=== PATIENT | female | born 1950 | race Caucasian/White ===

== ENCOUNTER → 2016-10-04 | Outpatient (CLI) | payer MEDICARE, BC ==
--- NOTE | 2016-10-05 14:33 | RAD ---
EXAM DESCRIPTION: Bilateral Ribs CLINICAL HISTORY: LEFT SIDE RIB PAIN COMPARISON: None available FINDINGS: The heart is at the upper limits of normal size. There is no airspace consolidation or pleural effusion. There is no apparent rib fracture or pneumothorax. There are degenerative changes in the thoracic spine at several levels including mild convex rightward scoliosis. There is compression deformity of the L1 body, questionable acuity. Postoperative changes are noted in the right shoulder. IMPRESSION: Degenerative changes in the thoracic spine including mild dextroscoliosis, but no rib fracture. L1 compression fracture, questionable acuity. Electronically signed by: Neymar Escoto MD 10/05/2016 2:31 PM CDT Workstation: -[id number]
== END ==
LOC: RAD 15:15
PROVIDERS: ATTEND Nurse Practitioner Family
DX: R07.1 Chest pain on breathing (principal)

== ENCOUNTER → 2016-10-09 | Outpatient (CLI) | payer MEDICARE, BC ==
--- NOTE | 2016-10-10 08:00 | CT ---
EXAM DESCRIPTION: Chest w/o Contrast CLINICAL HISTORY: CHEST PAIN ON BREATHING COMPARISON: Rib series October 04, 2016 TECHNIQUE: Noncontrast transaxial CT images of the chest are obtained. This exam was performed according to our departmental dose-optimization program, which includes automated exposure control, adjustment of the mA and/or kV according to patient size and/or use of iterative reconstruction technique . FINDINGS: Incidental low-attenuation lesion in the mid to lower pole left lobe thyroid measures 12 mm transverse. No further imaging follow-up is recommended based on size of lesion and patient age. Moderate to severe coronary artery calcifications are seen. Mild ectasia of the ascending thoracic aorta measuring 3.9 cm. Given the limitations of a noncontrast exam no pathologically enlarged lymphadenopathy seen. Dense breast tissue is incidentally noted. No pleural or pericardial effusion. Visualized portion of the upper abdomen shows cholecystectomy changes. There is a 12 mm nodule of the left adrenal gland with Hounsfield units of 4.3 suggesting adrenal adenoma. Small hiatal hernia is suspected. Fluid attenuation 3.4 cm exophytic cyst of the upper pole left kidney is noted. Lungs are mildly hyperinflated. Mild emphysematous changes to the lungs are seen. No acute infiltrate or consolidation is seen. There is a pleural-based noncalcified 6 mm pulmonary nodule the right middle lobe on image 36. A 3 mm noncalcified pulmonary nodule in the right upper lobe on image 17 is seen medially. There is a 2 to 3 mm noncalcified pulmonary nodule in the anterior left lower lobe on image 34. Osseous structures show no aggressive bony lesions. Scoliosis of the thoracic spine is seen with curvature of the mid to upper thoracic spine towards the right and curvature of the lower thoracic spine towards the left. Compression fracture deformity at L1 seen. The osseous structures are diffusely osteopenic limiting evaluation for nondisplaced rib fractures. There is mild cortical irregularity and angulation of the anterior left 10th rib. There is also evidence of remote healed fractures of the posterior right 11th and 12th ribs. Remote appearing fractures of the right seventh and eighth ribs are seen. IMPRESSION: No acute findings on CT of the chest. Remote appearing rib fractures are seen with question of more acute nondisplaced fracture of the anterior lateral left 10th rib. Correlate with pain or tenderness in this region. Moderate to severe coronary artery calcifications. Mild emphysematous changes to the lungs. Several nonspecific noncalcified pulmonary nodules are seen measuring less than 6 mm. Recommend follow-up CT imaging in one year to document long-term stability. Incidental low-attenuation lesion in the mid to lower pole left lobe thyroid measures 12 mm transverse. No further imaging follow-up is recommended based on size of lesion and patient age. 1.Further evaluation by thyroid US recommended for: -Solitary ITN with high risk imaging features (locally invasive nodule or suspicious lymph nodes) -Solitary ITN of any size in pediatric pts. <= 18 years of age -Solitary ITN >= 1 cm in axial plane in pts. between 18 and 35 years of age -Solitary ITN >= 1.5 cm in axial plane in pts >= 35 years of age -Heterogeneous enlarged thyroid gland -ITN avid on FDG-PET or other nuclear medicine (MIBI and octreotide) scans. FNA biopsy is also recommended for PET avid nodules. 2.No f/u imaging is recommended for ITNs not meeting the above criteria. 3.For multiple thyroid nodules, the above recommendations for solitary ITN are to be applied to the largest nodule. 4.No US or f/u recommended for ITNs without high risk features in pts. with limited life expectancy or significant co-morbidities, unless clinically warranted. 5.These recommendations do not apply to pts. w/ increased risk for thyroid cancer or pts. with symptomatic thyroid disease. Recommendations for f/u of Incidental Thyroid Nodules (ITN) found on CT, MR, NM and Extrathyroidal US are based upon the ACR white paper and [place] 3-tiered system for managing ITNs: J Am Ana Paula Radiol. 2015 Mar;12(2): 143-50 Electronically signed by: Jaswinder Rubin MD 10/10/2016 7:59 AM CDT
== END | disposition home or self-care (01) ==
LOC: CT 14:34
PROVIDERS: ATTEND Nurse Practitioner Family
DX: R07.1 Chest pain on breathing (principal)

== ENCOUNTER → 2017-05-24 | Outpatient (CLI) | payer MEDICARE, BC | LOC: GMAJS 11:10 | PROVIDERS: ATTEND Physician Assistant | DX: N30.00 Acute cystitis without hematuria (principal); R31.21 Asymptomatic microscopic hematuria ==

== ENCOUNTER → 2017-06-20 | Outpatient (CLI) | payer MEDICARE, BC ==
--- NOTE | 2017-06-21 08:53 | CT ---
EXAM DESCRIPTION: Chest w/Contrast : Computed Tomography. CLINICAL HISTORY: PULMONARY NODULE COMPARISON: Chest CT without contrast 10/09/2016. CT abdomen and pelvis without contrast 05/24/2017 TECHNIQUE: Spiral-axial scans at 5.0 mm intervals through the lungs and thorax without IV contrast. 2.5 mm lung algorithm axial reconstructions. 2.0 Mm reconstructions. No adverse reactions. Total Exam DLP: 358.30 mGy-cm. This exam was performed according to our departmental dose-optimization program which includes automated exposure control, adjustment of the mA and/or kV according to patient size and/or use of iterative reconstruction technique; to reduce radiation dose to as low as reasonably achievable (ALARA). FINDINGS: Minimally prominent airspaces in the lung parenchyma upper lobes more than lower lobes. Centrilobular in distribution. Nodule abutting the pleura of the lateral segment of the right middle lobe with mean diameter 6.3 mm soft tissue density stable since the prior study. Minimal bilateral mosaic parenchymal density. Bibasilar scarring more on the right. No new consolidation bilaterally. No pleural effusion or pneumothorax. Uniform enhancement bilateral thyroid gland. No soft tissue masses in the base of the neck. No soft tissue masses in the mediastinum or hilum bilaterally. No axillary adenopathy. Spondylosis at multiple levels of the thoracic spine with T5-T7 dextroscoliosis and lumbosacral levoscoliosis. Almost full-thickness central compression fracture at T12 is stable. Minimally enhancing nodule in the lateral segment of the left hepatic lobe. Approximately 1 cm diameter. There may be a second nodular enhancing more inferior and anterior in the same segment. Also 1 cm nodule enhancing in the subcapsular lateral right lobe. Normal enhancement and size of the adrenal glands and spleen. No free fluid in the included peritoneal space. Prior cholecystectomy. Common bile duct dilated. IMPRESSION: 1. Stable 6.3 millimeters nodule abutting the pleura lateral segment right middle lobe over 6 month interval. Consider 12 month follow-up according to 2017 Fleischner Society guidelines for follow-up of solitary pulmonary nodules. Please see below.* Stable background mild centrilobular emphysematous changes and bibasilar scarring or atelectasis. 2. At least 3 enhancing nodules in the liver. These are not calcified on the prior abdominal CT. Statistically these are most likely hemangiomas. Recommend follow-up MRI of the liver without and with gadolinium IV contrast. 3. Consider digital bilateral screening mammography not performed in the past 12 months. * 2017 Fleischner Society Recommendations for Single Solid Lung Nodule Follow-Up based on size (average of long- and short-axis diameters) <6 mm Low-Risk Patient: No routine follow-up <6 mm High-Risk Patient: Optional CT at 12 months 6-8 mm Low-Risk Patient: CT at 6-[address] at 18-24 months 6-8 mm High-Risk Patient: CT at 6-[address] at 18-24 months >8 mm Low-Risk Patient: Consider CT, PET/CT or tissue sampling at 3 months >8 mm High-Risk Patient: Same as for low-risk patient Electronically signed by: Reji Gardner MD 06/21/2017 8:51 AM CDT
== END ==
LOC: CT 08:48
PROVIDERS: ATTEND Family Medicine
DX: R91.8 Other nonspecific abnormal finding of lung field (principal)

== ENCOUNTER → 2018-01-23 | Outpatient (CLI) | payer MEDICARE, BC ==
--- NOTE | 2018-01-24 09:29 | US ---
US THYROID CLINICAL STATEMENT: THYROID NODULE. No palpable mass. No history of thyroid treatment or surgery. COMPARISON: None FINDINGS: Size right thyroid lobe: 4.0 x 1.9 x 1.4 cm Size left thyroid lobe: 3.1 x 1.5 x 1.5 cm Size isthmus: 0.2 cm Estimated total number of nodules greater than or equal to 1 cm: 1. Heterogeneous both lobes and isthmus. Nodule 1: Size: 0.8 x 0.6 x 0.5 cm Location: Right Mid Composition: solid or almost completely solid: 2 points Echogenicity: hypoechoic: 2 points Shape: wider than tall: 0 points Margins: ill-defined: 0 points Echogenic foci: none: 0 points ACR Total Points: 4; ACR TI-RADS risk category: TR4 - moderately suspicious nodule. Nodule 2: Size: 0.9 x 0.7 x 0.5 cm Location: Right Lower Composition: mixed cystic and solid: 1 point Echogenicity: hypoechoic: 2 points Shape: wider than tall: 0 points Margins: smooth: 0 points Echogenic foci: none: 0 points ACR Total Points: 3; ACR TI-RADS risk category: TR3 - mildly suspicious nodule. Nodule 3: Size: 0.3 x 0.3 x 0.3 cm Location: Left Upper Composition: cystic or completely cystic: 0 points Echogenicity: anechoic: 0 points Shape: wider than tall: 0 points Margins: smooth: 0 points Echogenic foci: none: 0 points ACR Total Points: 0; ACR TI-RADS risk category: TR1 - benign nodule Nodule 4: Size: 1.9 x 1.5 x 1.2 cm Location: Left Lower Composition: solid or almost completely solid: 2 points Echogenicity: hypoechoic: 2 points Shape: wider than tall: 0 points Margins: smooth: 0 points. Vascularity of the margins. Echogenic foci: none: 0 points ACR Total Points: 4; ACR TI-RADS risk category: TR4 - moderately suspicious nodule. Soft tissues around the thyroid gland with no distinct solid mass or cyst. No large calcifications or parenchymal edema. No overlying skin changes. Normal vascularity. IMPRESSION: 1. Nodule 1: ACR TI-RADS 2017 Category TR4. Recommend: No further follow-up. This is based upon [facility] [employer] recommendations following ACR TI-RADS 2017 recommendations and guidelines. Please see below.* 2. Nodule 2: ACR TI-RADS 2017 Category TR 4. Recommend: No further follow-up. 3. Nodule 3: ACR TI-RADS 2017 Category TR1. Recommend: No further follow-up. 4. Nodule 4: ACR TI-RADS 2017 Category TR4. Recommend: Ultrasound-guided fine needle aspiration Soft tissue around the thyroid gland is unremarkable. *ACR TI-RADS 2017 Recommendations: TR1: No FNA or follow up TR2: No FNA or follow up TR3: FNA if >/= 2.5 cm, follow up if 1.5 - 2.4 cm in 1, 3, and 5 years TR4: FNA if >/= 1.5 cm, follow up if 1.0 - 1.4 cm in 1, 2, 3, and 5 years TR5: FNA if >/= 1.0 cm, follow up if 0.5 - 0.9 cm every year for 5 years ACR TI-RADS recommends that no more than two nodules with the highest ACR TI-RADS total point should be biopsied and no more than four nodules should be followed. Electronically signed by: Reji Gardner MD 01/24/2018 9:28 AM [employer]
== END ==
LOC: US 14:30
PROVIDERS: ATTEND Family Medicine
DX: E04.1 Nontoxic single thyroid nodule (principal)

== ENCOUNTER → 2018-02-04 | Outpatient (CLI) | payer MEDICARE, BC ==
--- NOTE | 2018-02-04 12:55 | US ---
Thyroid Ultrasound Biopsy CLINICAL INFORMATION: . No complaints. Thyroid nodule found on screening test. Prior thyroid ultrasound 01/23/2014. TECHNIQUE: Procedure was explained to the patient with risks and benefits. The patient gave verbal and written consent. Sterile preparation draping. 1% xylocaine dermal anesthetic 9-1 mixture with sodium bicarbonate. Sterile ultrasound guidance. A total of 6 passes into the left thyroid nodule; 3 needle samplings with a separate 1.5 inch, 25-gauge needle per sample, and 3 aspirations, with a separate 1.5 inch, 25-gauge needle/10-cc syringe set, per aspiration. Each sample was placed on a separate slide and fixed in 95% alcohol container. Saccomanno fluid drawn into aspirate needle and rinse injected into Saccomanno container. Specimens to be sent for pathologic examination at remote facility. . Patient tolerated procedure well. Biopsy #: 1 Nodule reference number based on prior diagnostic ultrasound:4 Maximum size: 1.9 cm Location: left; lower ACR TI-RADS risk category: TR4 (4-6 points) Reason for biopsy: meets ACR TI-RADS criteria Complications: None IMPRESSION: Successful ultrasound guided fine needle aspiration of thyroid nodule. Left lower thyroid lobe. Pathology results pending at remote facility. Electronically signed by: Reji Gardner MD 02/04/2018 12:54 PM [employer]
== END ==
LOC: US 15:05
PROVIDERS: ATTEND Family Medicine
DX: E04.1 Nontoxic single thyroid nodule (principal)

== ENCOUNTER → 2018-05-27 | Outpatient (CLI) | payer MEDICARE, BC ==
--- NOTE | 2018-05-28 08:59 | CT ---
EXAM DESCRIPTION: Chest w/o Contrast CLINICAL HISTORY: SOLITARY LUNG NODULE COMPARISON: June 20, 2017 TECHNIQUE: Chest CT was performed without IV contrast. This exam was performed according to our departmental dose-optimization program, which includes automated exposure control, adjustment of the mA and/or kV according to patient size and/or use of iterative reconstruction technique. FINDINGS: 1.7 cm low-density nodule left thyroid lobe not seen on the previous CT. Coronary artery calcifications are noted. No thoracic aortic aneurysm. Moderate size hiatal hernia. Limited sensitivity for detection of adenopathy due to lack of IV contrast, but no mediastinal or hilar adenopathy is seen. The central airways are clear. No airspace consolidation or lung mass. 7 mm noncalcified pleural-based nodule in the right middle lobe (series 2 image 41), stable. No additional suspicious lung nodule is identified. The gallbladder is surgically absent. Tiny nonobstructing left renal calculus with a 3.7 cm uncomplicated cyst superior pole left kidney. Tiny calcified splenic granuloma. Visualized portions of the upper abdomen are otherwise unremarkable for noncontrast technique. No acute fracture or pneumothorax. Old L1 compression fracture, stable. Poorly defined area of lysis and sclerosis in the sternum at the sternomanubrial joint, stable and probably related to remote trauma. IMPRESSION: 7 mm noncalcified right middle lobe nodule, stable from May, and also unchanged from an older CT performed in September,. Based on 2017 Fleishner Society recommendations, no further follow-up is recommended for this finding. 1.7 cm low-density nodule left thyroid lobe which likely correlates with the nodule seen on recent ultrasound and biopsy performed January,. Moderate-sized hiatal hernia, coronary artery disease and other nonacute findings as detailed above Old L1 and sternal body fractures. Electronically signed by: Neymar Escoto MD 05/28/2018 8:56 AM CDT
== END ==
LOC: CT 12:16
PROVIDERS: ATTEND Internal Medicine
DX: J98.4 Other disorders of lung (principal); R91.1 Solitary pulmonary nodule; E04.1 Nontoxic single thyroid nodule

== ENCOUNTER → 2019-03-26 | Outpatient (CLI) | payer MEDICARE, BC ==
--- NOTE | 2019-03-27 16:04 | MRI ---
EXAM DESCRIPTION: Cervical Spine: MRI. CLINICAL HISTORY: 69 years Female RADICULOPATHY CERVICAL REGION COMPARISON: MRI scan cervical spine May 2014. TECHNIQUE: Multiplanar, high-field MRI, multiple sequences, non-contrast Cervical spine.. Technically difficult study due to patient motion especially on the axial images. FINDINGS: C3-C4: Disc desiccation and moderate disc space loss. Schmorl's node inferior C3 endplate anterior. Bilateral endplate spondylosis more severe on the left. 2 mm retrolisthesis. Anterior disc bulge and spurs. Posterior disc bulge broad-based and abutting the cord with endplate spurs and borderline mild canal stenosis. Facet joints are unremarkable. Bilateral uncinate spurs. Bilateral neural foraminal stenosis. Stable since the prior study. C4-C5: Moderate disc space loss anterior bulging and endplate ridging. Disc desiccated. Diffuse spondylosis. Bilateral disc spur complex encroaching on the lateral soft tissues. Posterior disc spur complex broad-based with central prominence impressing on the ventral midline cord with mild central canal stenosis. Minimal bilateral arthrosis of the facet joints. Bilateral uncinate spurs. Right neural foraminal stenosis and moderate to severe left neural foraminal narrowing. No change from the prior study. C5-C6: Disc degeneration and moderate to severe disc space loss and bilateral disc spur complex bulging laterally into the soft tissues. Bilateral uncinate spurs. Hypertrophic right facet arthrosis. Bilateral mild neural foraminal stenosis, more severe on the left. This has progressed since the prior study. Posterior broad-based disc bulge and endplate spurs with possible midline protrusion impinging the midline ventral cord with mild to moderate central canal stenosis. This has progressed since the prior study. C6-C7: Disc desiccation moderate disc space loss anterior bulging with endplate ridging. Posterior disc osteophyte bulge in the midline and left of midline impressing on the left ventral disc and the left C7 nerve. Bilateral uncinate spurs and bilateral neural foraminal stenosis more severe on the left. This has progressed on the right since the prior study. C7-T1: Disc desiccation and minimal disc space loss. Minimal anterior bulging. Posterior broad-based bulge with mild to moderate narrowing of the canal. Bilateral disc bulging into the foramina with right uncinate spur and right neural foraminal stenosis. Mild to moderate left neural foraminal narrowing. Facet joints are negative. Minimal thickening of the posterior ligaments. T1-T2: Disc desiccation minimal disc space loss anterior and posterior bulging. Mild canal narrowing. Mild bilateral neural foraminal narrowing. Facet joints are negative. Normal signal in the C2-C3 disc with no bulging. Disc spaces preserved. Canal and neural foramina are patent. Facet joints unremarkable. Levoscoliosis. Spinal alignment indicating levoscoliosis. Retrolisthesis C3-C4.. No cord compression or cord edema. Atlantoaxial joint minimal arthrosis and effusion.. Base of the cerebellar tonsils is above the foramen magnum. Paravertebral soft tissues unremarkable.. Vertebral bodies are not compressed at any level. Otherwise normal marrow signal in the remaining vertebral bodies and the posterior elements. IMPRESSION: 1. Posterior broad-based C3-C4 disc osteophyte bulge into the canal with borderline mild central canal stenosis. Bilateral neural foraminal stenosis with compromise bilateral C4 nerves. Stable since the prior study. 2. Posterior C4-C5 disc spur complex impressing on the ventral midline cord with mild central canal stenosis. Right neural foraminal stenosis and moderate to severe left neural foraminal narrowing. No change from the prior study. 3. C5-C6 disc bulging posteriorly with endplate spurs and possible midline protrusion, impinging the cord with mild to moderate central canal stenosis. No compression, but this has progressed since the prior study. Bilateral neural foraminal stenosis more severe on the left is also progressed. 4. Posterior midline and left paracentral C6-C7 disc spur complex abutting the cord with possible compromise of the left C7 nerve. Bilateral neural foraminal stenosis more severe on the left. This has progressed on the right since the prior study. 5. Disc bulge and right uncinate spur resulting in right neural foraminal stenosis at C7-T1. Possible compromise of the right C8 nerve. Stable from the prior study.. Electronically signed by: Reji Gardner MD 03/27/2019 4:02 PM [facility]
== END ==
LOC: MRI 14:00
PROVIDERS: ATTEND Family Medicine
DX: M54.12 Radiculopathy, cervical region (principal); M48.02 Spinal stenosis, cervical region; M48.03 Spinal stenosis, cervicothoracic region; M50.922 Unspecified cervical disc disorder at C5-C6 level; M50.93 Cervical disc disorder, unspecified, cervicothoracic region; M25.78 Osteophyte, vertebrae

== ENCOUNTER 2019-03-29 07:43 | Emergency (ER) | payer MEDICARE, BC ==
[2019-03-29 07:51] VITALS: TEMP 97.5
--- NOTE | 2019-03-29 07:56 | ED.PDOC ---
History of Present Illness - General Time Seen by Provider: 03/29/19 07:54 Source: patient - History of Present Illness Initial Comments: 69 yo female with PMH of HTN who presents with cc of chest pain. Sudden onset at 5 am while asleep - woke her up, located to center of chest, pressure-like, constant, 8/10 severity, radiated to left jaw and BL UE numbness as well, not worse with exertion or improved with rest, tried some antacids without relief at home, assoc'd with some dizziness. No hx of similar sx's. Denies any hx of MD/stents but has family hx of CAD/stroke in several immediate family members. Denies any dyspnea, cough, fevers/chills, abd pain, leg swelling, urinary sx's. Did report some nausea earlier with sx onset but no vomiting. Reports chest pain resolved shortly after ED arrival and reports 0/10 pain currently. Allergies/Adverse Reactions: Allergies Acetaminophen [From Darvocet-N] Allergy (Verified 06/20/13 18:09) Cephalexin Allergy (Verified 03/29/19 07:55) Morphine Allergy (Verified 06/20/13 18:09) Penicillins Allergy (Verified 06/20/13 18:09) Propoxyphene [From Darvocet-N] Allergy (Verified 06/20/13 18:09) Sulfa Antibiotics Allergy (Verified 06/20/13 18:09) Home Medications: Ambulatory Orders Atorvastatin Calcium 20 mg PO AM 06/11/13 Losartan Potassium 100 mg PO DAILY 06/11/13 Aspirin [Aspirin Adult Low Dose] 81 mg PO DAILY 11/29/15 Diltiazem HCl [Diltiazem HCl ER] 240 mg PO DAILY 03/29/19 Hydrochlorothiazide 25 mg PO DAILY 03/29/19 Meloxicam 15 mg PO DAILY 03/29/19 Review of Systems - Review of Systems Review of Systems: 03/29/19 08:10 as per HPI All other Systems: Reviewed and Negative Past Medical History (General) - Patient Medical History Hx Seizures: No Hx Stroke: No Hx Dementia: No Hx Asthma: No Hx of COPD: No Hx Cardiac Disorders: No Hx Congestive Heart Failure: No Hx Pacemaker: No Hx Hypertension: Yes Hx Thyroid Disease: No Hx Diabetes: No Hx Gastroesophageal Reflux: No Hx Renal Disease: No Hx Cancer: No Hx of HIV: No Hx Hepatitis C: No Hx MRSA: No Surgical History: appendectomy, cholecystectomy, Hysterectomy - Vaccination History Hx Tetanus, Diphtheria Vaccination: Yes Hx Influenza Vaccination: Yes Hx Pneumococcal Vaccination: Yes - Social History Hx Tobacco Use: No Hx Chewing Tobacco Use: No Hx Alcohol Use: No Hx Substance Use: No Hx Substance Use Treatment: No Hx Depression: No Feels Threatened In Home Enviroment: No Feels Threatened In a Relationship: No Hx Physical Abuse: No Hx Emotional Abuse: No Hx Suspected Abuse: No - Female History Patient is a Female of Child Bearing Age (10 -59 yrs old): No Patient : No - Triage Comment ED Triage Comment: Chest pressure Family Medical History - Family History Mother Living Status: Age at (years of age): 55 Cause of : CVA Hx Family Hypertension: Yes Hx Family Stroke: Yes Physical Exam - Physical Exam General Appearance: Alert, Comfortable, No apparent distress Eye Exam: bilateral normal Ears, Nose, Throat: hearing grossly normal, normal ENT inspection Neck: non-tender, full range of motion, supple, normal inspection Respiratory: chest non-tender, lungs clear, normal breath sounds, no respiratory distress Cardiovascular/Chest: normal peripheral pulses, no edema, no murmur, tachycardia Peripheral Pulses: radial,right: 2+, radial,left: 2+ Gastrointestinal/Abdominal: non tender, soft Back Exam: normal inspection, no CVA tenderness, no vertebral tenderness Extremity: normal range of motion, non-tender, normal inspection, no pedal edema, no calf tenderness Neurologic: [employer] II-XII nml as tested, no motor/sensory deficits, alert, normal mood/affect, oriented x 3 Skin Exam: normal color, warm/dry Lymphatic: no adenopathy Progress - Progress Progress: 03/29/19 08:11 Chest pain -consider a-fib, ACS, CHF, PE, PNA, MSK, anxiety -on arrival pt in a-fib with RVR with HR 150s-170s, BP 110s/70s, remainder of vitals wnl -obtain cardiac work-up, labs -1 L NS bolus, trial of Diltiazem 10 mg IV push, ASA 324 mg PO 03/29/19 08:18 -Pt given Diltiazem 10 mg IVP x2 now and begun on 1 L bolus, HR remains 140s- 150s, BP 110s/70s. Will try metoprolol 5 mg IV to try to control her rate. 03/29/19 08:47 -Pt's HR now down to 110-130s. BP remains 110s/70s. Will give a 2nd dose of metoprolol 5 mg IV. 03/29/19 09:15 -Pt's HR still elevated 110s-130s. BP 108/75. Giving 3rd dose of metoprolol 5 mg IV. -Trop 0.02, d dimer <100, K 3.3 (replaced PO), remainder of labs pretty unremarkable thus far. -Pt denies any further chest pain or acute sx's currently. 03/29/19 10:54 -Pt cardioverted approx 30 mins ago to NSR following 3rd metoprolol dose and has remained in NSR. Current HR 65, remainder of vitals wnl. -Repeat trop has increased from 0.02 to 0.06 at 2 hours. Repeat EKG shows NSR, HR 65, no ST elevations or q waves, axis and intervals normal, compared to initial EKG a-fib with RVR and ST segment depressions now resolved. Pt remains without any chest pain since arrival. -Given rising troponin and new-onset a-fib, feel urgent cardiology consultation is needed. Spoke with Dr. Lewis at [facility] who accepts pt to PCU there. Stable to go via ground EMS in fair condition. Roby Zhao MD Billing #[id number] - Results/Orders Results/Orders: 03/29/19 07:54 IV Care:Saline Lock per Protoc QSHIFT Telemetry .ONCE Sodium Chloride 0.9% (Flush) [Saline Flush Syringe] 10 ml IV PRN PRN 03/29/19 08:00 EKG STAT 03/29/19 09:00 Pulse Ox Daily 03/29/19 09:45 EKG STAT Laboratory Results - last 24 hr 03/29/19 03/29/19 03/29/19 07:35 07:35 07:35 WBC 4.9 RBC 4.57 Hgb 13.8 Hct 42.1 MCV 92.2 MCH 30.2 MCHC 32.7 L RDW 13.9 Plt Count 208 MPV 8.1 Absolute Neuts (auto) 2.80 Absolute Lymphs (auto) 1.20 Absolute Monos (auto) 0.70 Absolute Eos (auto) 0.20 Absolute Basos (auto) 0.10 Neutrophils % 57.3 Lymphocytes % 24.2 Monocytes % 13.4 H Eosinophils % 3.9 Basophils % 1.2 PT 10.1 INR 1.02 PTT (SP) 23.4 D-Dimer, Quantitative < 100 L Sodium 141 Potassium 3.3 L Chloride 106 Carbon Dioxide 25 Anion Gap 13.3 BUN 20 H Creatinine 0.74 BUN/Creatinine Ratio 27.0 H Random Glucose 101 Serum Osmolality 284.0 Lactic Acid Calcium 9.3 Magnesium Total Bilirubin 1.0 AST 21 ALT 34 Alkaline Phosphatase 73 Troponin I B-Natriuretic Peptide 95.2 Serum Total Protein 6.1 L Albumin 3.7 Globulin 2.4 Albumin/Globulin Ratio 1.5 TSH 03/29/19 03/29/19 03/29/19 07:35 08:35 08:56 WBC RBC Hgb Hct MCV MCH MCHC RDW Plt Count MPV Absolute Neuts (auto) Absolute Lymphs (auto) Absolute Monos (auto) Absolute Eos (auto) Absolute Basos (auto) Neutrophils % Lymphocytes % Monocytes % Eosinophils % Basophils % PT INR PTT (SP) D-Dimer, Quantitative Sodium Potassium Chloride Carbon Dioxide Anion Gap BUN Creatinine BUN/Creatinine Ratio Random Glucose Serum Osmolality Lactic Acid 1.5 Calcium Magnesium 2.2 Total Bilirubin AST ALT Alkaline Phosphatase Troponin I 0.02 B-Natriuretic Peptide Serum Total Protein Albumin Globulin Albumin/Globulin Ratio TSH 3.11 03/29/19 08:56 WBC RBC Hgb Hct MCV MCH MCHC RDW Plt Count MPV Absolute Neuts (auto) Absolute Lymphs (auto) Absolute Monos (auto) Absolute Eos (auto) Absolute Basos (auto) Neutrophils % Lymphocytes % Monocytes % Eosinophils % Basophils % PT INR PTT (SP) D-Dimer, Quantitative Sodium Potassium Chloride Carbon Dioxide Anion Gap BUN Creatinine BUN/Creatinine Ratio Random Glucose Serum Osmolality Lactic Acid Calcium Magnesium Total Bilirubin AST ALT Alkaline Phosphatase Troponin I 0.06 H B-Natriuretic Peptide Serum Total Protein Albumin Globulin Albumin/Globulin Ratio TSH - EKG/XRAY/CT EKG: Atrial, Fibrillation - a-fib with RVR, HR 170, no ST elevations or q waves, diffuse min ST segment depressions likely repolarization abnormality vs ischemia, axis normal, intervals normal, compared to 11/29/15 EKG a-fib appears new. XRAY: chest - nonspecific increased interstitial markings in Right lung base per my read, no other acute processes noted Departure - Departure Clinical Impression: NSTEMI (non-ST elevated myocardial infarction), Atrial fibrillation with rapid ventricular response Time of Disposition: 10:58 Disposition: Transfer to Hospital Condition: Fair Referrals: Akira Cherry MD [Primary Care Provider] - 1-2 Weeks Home Medications: Ambulatory Orders Atorvastatin Calcium 20 mg PO AM 06/11/13 Losartan Potassium 100 mg PO DAILY 06/11/13 Aspirin [Aspirin Adult Low Dose] 81 mg PO DAILY 11/29/15 Diltiazem HCl [Diltiazem HCl ER] 240 mg PO DAILY 03/29/19 Hydrochlorothiazide 25 mg PO DAILY 03/29/19 Meloxicam 15 mg PO DAILY 03/29/19 Transfer to Outside Facility - Transfer Information Decision to Transfer Date: 03/29/19 Decision to Transfer Time: 10:58 Reason for Transfer: required specialist not available - cardiology Accepting Provider:: Dr. Lewis Accepting Facility: [facility]
[2019-03-29] MEDS: SODIUM CHLORIDE 0.9% (FLUSH) 10 ML SYG IV PRN (07:57)
[2019-03-29] MEDS: SODIUM CHLORIDE 0.9% 1000ML 1,000 ML IVS ONE (07:58)
[2019-03-29] MEDS: ASPIRIN (CHEWABLE) 81 MG TAB PO ONE (08:08)
--- NOTE | 2019-03-29 08:18 | RAD ---
EXAM DESCRIPTION: XR Chest, one view CLINICAL HISTORY: chest pain. COMPARISON: October 04, 2016 FINDINGS: The heart is normal in size. The pulmonary vascularity is normal. The lungs are clear. No dense focal consolidation is seen. Nonspecific increased interstitial markings are seen in the right lung base. No pneumothorax or pleural effusion is seen. Mild scoliosis of the thoracic spine is noted. Small hiatal hernia is noted. IMPRESSION: No acute cardiopulmonary process. Electronically signed by: Stefania Mckeon MD 03/29/2019 8:16 AM PROPERTY FIELD INSPECTOR
[2019-03-29] MEDS: METOPROLOL TARTRATE INJ 5 MG/5 ML VIAL IV ONE ×3 (08:19→09:16)
[2019-03-29] MEDS: POTASSIUM CHLORIDE 20 MEQ TAB PO ONE (08:39)
[2019-03-29] MEDS ORDERED: HEPARIN PREMIX 500 ML ONE (10:56)
[2019-03-29] MEDS: HEPARIN PREMIX 25,000 UNITS in PREMIX BAG 1 BAG IVS ONE (11:00)
[2019-03-29 11:06] VITALS: BP 128/94; O2SAT 98
== END 2019-03-29 11:30 | disposition short-term general hospital (02) ==
LOC: ER 07:43
DX: I21.4 Non-ST elevation (NSTEMI) myocardial infarction (principal); I48.91 Unspecified atrial fibrillation; R00.0 Tachycardia, unspecified; I10 Essential (primary) hypertension; Z79.82 Long term (current) use of aspirin; Z79.899 Other long term (current) drug therapy; Z88.6 Allergy status to analgesic agent; Z88.5 Allergy status to narcotic agent; Z88.0 Allergy status to penicillin; Z88.2 Allergy status to sulfonamides; Z88.8 Allergy status to other drugs, medicaments and biological substances
CPT/HCPCS: 36415; 71045; 80053; 83605; 83735; 83880; 84443; 84484; 85025; 85379; 85610; 85730; 93005; J1644; J7030